=== PATIENT | male | born 1945 | race Caucasian/White ===

== ENCOUNTER 2022-06-08 06:38 | Outpatient (CLI) | payer OTHER ==
[~2022-06-08] VITALS: Ht 185.4 cm; Wt 88.6 kg
[2022-06-08] VITALS (9 sets, daily range): BP systolic 113–162; BP diastolic 62–86; PULSE 73–79; TEMP 97.7
[~2022-06-08 06:38] MED LIST: ASPIRIN 81M81 MG/TA2 PO; HCTZ12.5TAB PO; INSLANT SC; LIPITOR20 MG PO; NITROSTAT0.4 MG/TAB SL; NOVOLOG 100U100 U/M1 SC; PRINIVIL40 MG PO; SLO-NIACIN250 MG; TOPROL XL100 MG PO; VITAMIN D1000 IU; ZETIA 10MG TAB10 MG PO
--- NOTE | 2022-06-08 10:15 | NUR ---
Discharge instructions given to pt.pt verbalizes understanding.Pt escorted out via wheelchair.
== END 2022-06-08 14:46 ==
LOC: COL.RAD 06:38
DX: R91.1 Solitary pulmonary nodule (principal)
CPT/HCPCS: 32107